=== PATIENT | female | born 1975 | race Two or more races ===

== ENCOUNTER 2024-07-25 21:36 | Emergency (ER) | payer MEDICAID, SELFPAY ==
[2024-07-25 21:36] VITALS: BMI 34.7
--- NOTE | 2024-07-25 22:14 | EDNOTE_ITS ---
ED Abdominal Pain RME/HPI General Chief Complaint: Abdominal Pain Stated complaint: LLQ PAIN X5DAYS Time seen by provider: 07/25/24 21:59 Arrival date/time: 07/25/24 21:36 RME / HPI RME / HPI narrative: This section includes all my notes and documentations, including HPI, PE, and ED course. Salomón Man MD HPI: 49yo female with a history of presents to the ED for a chief complaint of LLQ pain x Sunday. Patient states her pain has progressively gotten worse, reporting it now radiates to the left side of her back. Patient denies any N/V, fever, chills, dysuria, hematuria or any other associated symptoms. No other complaints reported. ROS: All negative except as documented in HPI. Physical Exam: General: Alert and oriented. No acute distress when remaining still. Eyes: Conjunctivae and lids clear. ENT: No nasal congestion. Neck: Supple. Heart: RRR. Lungs: No respiratory distress. Good air movement. No rhonchi, wheezing, rales. Abdomen: Soft. LLQ tenderness. Normal bowel sounds. No distension. No rebound or guarding. Back: No CVA tenderness. Skin: Warm and dry. Neuro: Alert and oriented X 3. I reviewed all diagnostic test results. My interpretation of the transvaginal US report is My review of the CT abdomen/pelvis report is Blood tests and urine tests At this point, diagnoses include strain of left inguinal muscle. Treatment here included Tylenol with Codeine and Zofran. Significant improvement Based on my best medical judgment, made decision no further evaluation or treatment indicated at this time. Patient understands and agrees to the discharge instructions customized and printed, see below. Discharge Instructions from Dr. Man printed for you: 1. After extensive evaluation, there is no emergency or serious infection. 2. Your pain is due to tears of small muscle fibers in your left groin area. 3. Activity as tolerated. 4. Apply heat throughout the day to help the healing process. 5. Ibuprofen 800 mg every 6-8 hours today and tomorrow to decrease inflammation then as needed. Tylenol with codeine for severe pain. Lidocaine pain patches as needed. 6. See a private doctor next week if not completely better. To make sure there is no serious intra-abdominal condition, ask for help with more investigation not available here in the ER. Such as EGD or scoping the stomach, colonoscopy or scoping the colon, and referral to see rough carpenter. Ask to review all test results and official radiology reports, to make sure you receive all necessary follow-ups and monitoring. 7. Seek immediate medical care with worsening or with any concerns. Salomón Man MD Related Data Previous Rx's ?Medication ?Instructions ?Recorded acetaminophen 300 mg-codeine 30 mg 2 tab PO Q8H PRN pa in #20 tabs 07/26/24 tablet Allergies Allergy/AdvReac Type Severity Reaction Status Date / Time No Known Allergies Allergy Verified 01/18/23 13:07 Review of Systems Review of Systems Systems Reviewed: All systems reviewed, normal except as documented Past Medical History Past Medical History NEUROLOGIC: Positive Neurological Disorders and Transient Ischemic Attacks (TIA); Negative Seizures CARDIAC: Negative Congestive Heart Failure RESPIRATORY: Negative Chronic Obstructive Pulmonary Disease (COPD) GENITOURINARY: Negative Renal Disease MUSCULOSKELETAL: Positive Arthritis ENDOCRINE: Negative Diabetes Mellitus Type 1 or Diabetes Mellitus Type 2 OTHER HISTORY: Positive Blood Transfusions; Negative Autoimmune Disease, Falls, Blood Transfusion Reaction, Anesthesia Reactions or Cancer Family History FAMILY HISTORY: Positive Family Cardiac Disorders (HTN); Negative Family Respiratory Disorders, Family Cancer or Family Anesthesia Reaction Surgical History SURGICAL: Positive Tubal Ligation and Section Social History SMOKING STATUS: Never smoker ED Exam Narrative Physical exam: As noted in HPI. Course Quality Measures none Orders Category Date Time Status CT abdomen pelvis wo con Stat Exams 07/25/24 22:20 Taken US transvaginal Stat Exams 07/25/24 22:20 Completed CBC Stat Lab 07/25/24 22:33 Completed CMP [Comprehensive Metabolic Panel] Stat Lab 07/25/24 22:33 Completed HCG Qualitative,Urine Stat Lab 07/25/24 22:30 Completed HCG,Qualitative Serum Stat Lab 07/25/24 22:33 Completed Magnesium Stat Lab 07/25/24 22:33 Completed UA, C/S IF [Urinalysis, C/S if Indicated] Stat Lab 07/25/24 22:30 Completed ACETAMINOPHEN w/COD 300-30 [Tylenol w/Cod #3] Med 07/25/24 22:19 Discontinued 2 tab PO X1 ONE Ondansetron Odt [Zofran Odt] Med 07/25/24 22:19 Discontinued 4 mg PO X1 ONE Vital Signs Vital signs: Vital Signs Temperature 99.0 F 07/25/24 22:22 Pulse Rate 87 07/25/24 22:22 Respiratory Rate 20 07/25/24 22:22 Blood Pressure 146/83 H 07/25/24 22:22 Pulse Oximetry (%) 97 07/25/24 22:22 Oxygen Delivery Method Room Air 07/25/24 22:22 Abdominal Pain MDM MDM Narrative MDM Narrative:: Scribe Attestation: 07/25/24 - Isa Downey am scribing for and in the presence of Dr. Man. Patient data External records reviewed:: [facility] previous records (Per chart review, patient has no relevant previous ED visits to this facility.) Clinical information provided by:: patient Social determinants that could affect healthcare access:: none Patient has the following chronic illnesses:: none How is presenting disease/condition affected by chronic disease/condition?: no chronic disease Evaluation data The following diagnostics were reviewed and interpreted by me:: lab results and radiology exam(s) Lab and/or radiology exams considered but not ordered:: none Interpretation Summary: Strain of left inguinal muscle Medications / Prescriptions Medications or Prescriptions considered but not ordered:: none Medication administrations:: Medication Administration History Discontinued Medications Acetaminophen/Codeine Phosphate (Acetaminophen W/Cod 300-30 Tablet) 2 tab PO X1 ONE Stop: 07/25/24 22:20 Last Admin: 07/25/24 22:36 Dose: 2 tab Documented By: WILLIAMS Ondansetron HCl (Ondansetron Odt 4 Mg Tabrap) 4 mg PO X1 ONE; Protocol Stop: 07/25/24 22:20 Last Admin: 07/25/24 22:36 Dose: 4 mg Documented By: WILLIAMS Tylenol with Codeine, Zofran Consultations Consultation(s) initiated? (list below): No Diagnosis Most likely diagnosis given after review of the tests above:: Strain of left inguinal muscle Admission Indicated Admission indicated?: not indicated Explain why admission is indicated or not indicated:: With significant improvement, there was no indication for admission. Admission Request Was there a request for admission?: No Disposition Plan Disposition Plan: Discharge Discharge Attestation Discharge Attestation: The patient and all family members were given an opportunity to ask questions and understood the discharge instructions. Discharge instructions specifically effects, indications for sooner follow up or return to the emergency department, and the expected course of current diagnosis. Patient condition: Stable Discharge Plan Plan Patient Disposition: HOME (Self Care) Prescriptions/Referrals Prescriptions/Med Rec: New acetaminophen-codeine 300-30 mg tablet 2 tab PO Q8H MDD 6 PRN (Reason: pain) Qty: 20 0RF Referrals: No Primary/Family,Physician [Primary Care Provider] - In 1 week Problem List Clinical Impression: Strain of left inguinal muscle Patient/Caregiver Discharge Instructions Discharge Activity: activity as tolerated Education Materials: ED Muscle Strain, Extremity Additional Instructions: Discharge Instructions from Dr. Man printed for you: 1. After extensive evaluation, there is no emergency or serious infection. 2. Your pain is due to tears of small muscle fibers in your left groin area. 3. Activity as tolerated. 4. Apply heat throughout the day to help the healing process. 5. Ibuprofen 800 mg every 6-8 hours today and tomorrow to decrease inflammation then as needed. Tylenol with codeine for severe pain. Lidocaine pain patches as needed. 6. See a private doctor next week if not completely better. To make sure there is no serious intra-abdominal condition, ask for help with more investigation not available here in the ER. Such as EGD or scoping the stomach, colonoscopy or scoping the colon, and referral to see rough carpenter. Ask to review all test results and official radiology reports, to make sure you receive all necessary follow-ups and monitoring. 7. Seek immediate medical care with worsening or with any concerns. Print Language: Sami Stand Alone Forms: [facility] Award Info., Patient Portal Info Letter
--- NOTE | 2024-07-25 22:20 | XR_ITS ---
Examination: CT abdomen and pelvis without contrast. Coronal 3-D reconstructions. Sagittal 2-D reconstructions. Date and time of exam:July 26, 2024 0109 hrs. Indications: Onset flank pain today CTDI: vol (mGy): 9.52 DLP: (mGycm): 528 Technique: Axial images of the abdomen have been obtained, 3 mm slice thickness Intravenous contrast material has not been administered. Low dose protocols were performed. One or more of the following dose reduction techniques were used; automated exposure control, adjustment of the mA and/or KV according to patient size, use of iterative reconstruction technique. Findings: No focal liver or splenic lesion No gallstones No pancreatic mass No renal or adrenal calculi, no hydronephrosis Aorta normal size No pericecal inflammatory change 2 cm left adnexal cyst No bladder mass or bladder calculi Impression: No renal or ureteral calculi, no hydronephrosis 2 cm left adnexal cyst
--- NOTE | 2024-07-25 22:20 | XR_ITS ---
Examination: Transvaginal ultrasound of the pelvis, complete Technique: Transvaginal sonographic images pelvis performed using gant scale imaging Exam date and time: July 25, 2024 11:40 PM Indications: Pelvic pain beginning 5 days ago Findings: Uterus 10.3 cm x 1.2 cm No uterine mass or intrauterine gestation Right ovary 3.0 cm arterial flow 15 mm follicular cyst Left ovary 1.8 cm arterial flow 14 mm follicular cyst Impression: No uterine mass or intrauterine gestation Negative for ovarian torsion No adnexal mass.
[2024-07-25 22:22] VITALS: BP 146/83; PULSE 87; RESP 20; TEMP 37.2; O2SAT 97
[2024-07-25] MEDS: ONDANSETRON ODT 4 MG TABRAP PO (22:36)
[2024-07-25] MEDS: ACETAMINOPHEN w/COD 300-30 TABLET 2 TAB PO (22:36)
[2024-07-25 22:37] LABS: Collection Type, Urine Clean Catch
[2024-07-25 22:44] LABS: HCG Qualitative,Urine Negative
[2024-07-25 22:46] LABS: Bilirubin,Urine Negative (Negative); Blood,Urine Negative (Negative); Clarity,Urine Clear (Clear/Hazy); Color,Urine Yellow (Lt Yel-Yel); Culture Indicated,Urine Not Indicated; Glucose, Urine Negative (Negative); Ketones,Urine Negative (Negative); Leukocyte Esterase,Urine Positive (Negative); Nitrite,Urine Negative (Negative); Protein,Urine Trace (Neg - Trace); RBC,Urine 12 /hpf (0-3); Squamous Epithelial Cell,Urine 10 /hpf (0-5); Urobilinogen,Urine Negative mg/dL (0.0-1.0); WBC,Urine < 1 /hpf (0-5)
[2024-07-25 23:13] LABS: Basophils % (Auto) 0 % (0-2.5); Eosinophils # (Auto) 0.1 Thou/mm3 (0.0-0.5); Eosinophils % (Auto) 2 % (0-10); Hematocrit 30.9 % (36.0-46.0); Hemoglobin 10.2 g/dL (12.0-16.0); Immature Granulocytes % (Auto) 0 % (0-0); Immature Granulocytes Auto 0.01 Thou/mm3 (0.00-0.00); Lymphocytes # (Auto) 1.2 Thou/mm3 (1.0-4.8); Lymphocytes % (Auto) 28 % (10-50); Mean Corpuscular Hemoglobin 26.8 pg (25.0-35.0); Mean Corpuscular Volume 81 fL (80-100); Monocytes # (Auto) 0.6 Thou/mm3 (0.0-0.8); Monocytes % (Auto) 14 % (0-12); Neutrophils # (Auto) 2.3 Thou/mm3 (1.8-7.7); Neutrophils % (Auto) 55 % (37-80); Nucleated Red Blood Cell % 0 /100 WBC (0); Platelet Count 147 Thou/mm3 (140-440); RDW Standard Deviation 44.1 fL (36.4-46.3); White Blood Count 4.2 Thou/mm3 (3.6-11.0)
[2024-07-25 23:17] LABS: HCG,Qualitative Serum Negative
[2024-07-25 23:23] LABS: Anion Gap 6 (7-16); BUN/Creatinine Ratio 17 Ratio (12-20); Blood Urea Nitrogen 10 mg/dL (9-23); Calcium 8.6 mg/dL (8.3-10.6); Carbon Dioxide 25.1 mMol/L (20.0-31.0); Chloride 107 mMol/L (98-107); Creatinine (Component) 0.6 mg/dL (0.6-1.3); Estimated Creatinine Clearance 105.5 mL/min (>60); Glucose 99 mg/dL (74-106); Osmolality,Calculated 274 (275-295); Potassium 3.8 mMol/L (3.4-5.1); Sodium 138 mMol/L (136-145); eGFR > 60 See Note
[2024-07-25 23:24] LABS: Alanine Aminotransferase 36 U/L (10-49); Albumin, Serum 4.2 gm/dL (3.5-5.0); Albumin/Globulin Ratio 1.4 (1.2-2.2); Alkaline Phosphatase 82 U/L (46-116); Aspartate Amino Transferase 51 U/L (0-34); Bilirubin,Total 0.2 mg/dL (0.3-1.2); Calcium (Corrected) 8.6 mg/dL (8.5-10.1); Globulin 2.9 gm/dL (2.3-3.5); Magnesium 1.8 mg/dL (1.6-2.6); Total Protein 7.1 gm/dL (5.7-8.2)
--- NOTE | 2024-07-26 02:20 | PRELIM_ITS ---
CT scan of the abdomen and pelvis without intravenous contrast (axial sections with sagittal and coronal reformats) July 26, 2024 0109 hours Clinical History: ABD PAIN - L flank No prior study is available for comparison. Findings: The lung bases are clear. The liver, gallbladder, pancreas, spleen, kidneys and adrenals are unremarkable on this noncontrast study. No evidence of bowel obstruction. The appendix is not definitively visualized; however, there is no evidence of inflammatory process in the right lower quadrant to suggest appendicitis. There is no mesenteric or retroperitoneal adenopathy. A moderate amount of fecal material is noted within the colon. The urinary bladder is unremarkable. There is no free fluid or free air. There is a left ovarian follicle, measuring 2 cm. The uterus and adnexa are unremarkable. Calcific densities are seen in the pelvis, likely representing phleboliths. Degenerative changes are identified in the spine. Impression: No evidence of renal/ureteric calculus or hydroureteronephrosis. Moderate constipation. Report Electronically Signed By: Basilio Durham 07/26/2024 2:20:18 AM [EST]
== END 2024-07-26 02:37 | disposition home or self-care (01) ==
PROVIDERS: Emergency Provider Emergency Medicine
DX: S39.011A Strain of muscle, fascia and tendon of abdomen, initial encounter (principal); X58.XXXA Exposure to other specified factors, initial encounter
CPT/HCPCS: 36415; 74176; 76830; 80053; 81001; 81025; 83735; 84703; 85025; 99284; Q0162; A9270

== ENCOUNTER → 2024-09-05 | Outpatient (CLI) | payer MEDICAID, SELFPAY ==
--- NOTE | 2024-09-05 14:30 | XR_ITS ---
Examination: Breast ultrasound, unilateral, left complete Date and time of exam: September 05, 2024 1431 hours INDICATIONS: Left breast sonogram February 12, 2024 2:00 nodule versus glandular tissue 6 x 5 mm Technique: Real-time gant scale ultrasonographic imaging performed left breast including all 4 quadrants as well as nipple retroareolar and axillary region. Findings: 2:00 nodule lobular margins 5 x 5 mm 2:00 nodule circumscribed 4 x 4 millimeter IMPRESSION: BI-RADS Category 3: Probably benign findings Recommend 1 additional 6 month left breast sonogram follow-up to document stability of the nodules described above
== END | disposition home or self-care (01) ==
LOC: CDIM 14:13
PROVIDERS: PCP Family Medicine; Referring Provider Specialist; Visit Provider Specialist
DX: R92.8 Other abnormal and inconclusive findings on diagnostic imaging of breast (principal); N63.21 Unspecified lump in the left breast, upper outer quadrant
CPT/HCPCS: 76641

== ENCOUNTER → 2024-10-16 | Outpatient (CLI) | payer MEDICAID, SELFPAY ==
--- NOTE | 2024-10-16 08:45 | XR_ITS ---
Examination: Screening digital mammography, bilateral Computer aided detection 3-D breast Tomosynthesis, bilateral Date and time of exam: October 16, 2024 0841 hours Compared to mammograms dating to March 19, 2023 Indication: Screening Technique: Nonmagnified MLO, CC views of the breasts to been obtained, reconstructed from 3-D Tomosynthesis images. R2 computer aided detection program utilized for evaluation of suspicious masses and/or abnormal calcifications. 3-D Tomosynthesis images obtained. Findings: The breasts are heterogeneously dense, which may obscure small masses Benign calcifications No interval suspicious masses Impression: BI-RADS category II: Benign Findings. Recommend 1 year follow-up mammogram.
== END | disposition home or self-care (01) ==
LOC: CDIM 08:31
PROVIDERS: Referring Provider Physician Assistant Medical; Visit Provider Physician Assistant Medical
DX: Z12.31 Encounter for screening mammogram for malignant neoplasm of breast (principal); R92.323 Mammographic fibroglandular density, bilateral breasts; R92.1 Mammographic calcification found on diagnostic imaging of breast
CPT/HCPCS: 77063; 77067